=== PATIENT | male | born 1970 | race Caucasian/White ===

== ENCOUNTER 2021-09-22 03:45 | Inpatient (IN) | payer MEDICAID ==
[~2021-09-22] VITALS: Ht 175.3 cm; Wt 72.6 kg
[2021-09-22] MEDS ORDERED: ALBUTEROL SULF 2.5 MG/0.5ML(0.5%) NEB SOLN ONE (04:59)
[2021-09-22] MEDS ORDERED: IPRATROPIUM BROM 0.5 MG/2.5ML INH SOL NEB ONE ×2 (05:00→13:00)
[2021-09-22] MEDS ORDERED: methylPREDNISolone SOD SUCC 125 MG/2 ML VL IV ONE ×2 (05:00→13:00)
[2021-09-22 08:57] LABS: Basophils # (auto) 0 10 ^3/uL (0-0.2); Basophils % (auto) 0.5 % (0.0-2.0); Eosinophils # (auto) 0 10 ^3/uL (0-0.8); Eosinophils % (auto) 0.3 % (0.0-7.0); Hematocrit 38.7 % (41.0-53.0); Hemoglobin 13.4 g/dL (13.5-17.5); Lymphocytes # (auto) 0.3 10 ^3/uL (0.4-5.4); Lymphocytes % (auto) 4.8 % (10.0-50.0); Mean Corpuscular Hemoglobin 31.2 pg (28.0-32.0); Mean Corpuscular Hgb Conc. 34.6 g/dL (32.0-36.0); Mean Corpuscular Volume 90.1 fL (80.0-100.0); Monocytes # (auto) 0.4 10 ^3/uL (0-1.3); Monocytes % (auto) 5.5 % (0.0-12.0); Neutrophils # (auto) 6.1 10 ^3/uL (1.6-8.6); Neutrophils % (auto) 88.9 % (37.0-80.0); Red Blood Cells 4.29 10^6/uL (4.5-5.90); Red Cell Distribution Width 13.8 % (11.8-14.3); White Blood Cell 6.8 10^3/uL (4.4-10.8)
[2021-09-22 09:09] LABS: Albumin 3.5 g/dL (3.4-5.0); Calcium 9.3 mg/dL (8.5-10.1); Potassium 3.5 mmol/L (3.5-5.1)
[2021-09-22 09:12] LABS: BUN/Creatinine Ratio 15.7; Bilirubin, Total 0.4 mg/dL (0.2-1.0); Total Protein 6.6 g/dL (6.4-8.2)
[2021-09-22] MEDS ORDERED: ALBUTEROL SULF 2.5 MG/0.5ML(0.5%) NEB SOLN NEB ONE (13:00)
[2021-09-22] MEDS ORDERED: SODIUM CHLORIDE 0.9% 1,000 ML IV ONE (13:00)
[2021-09-22] MEDS ORDERED: ASPirin 81 mg TAB PO ONE (13:00)
[2021-09-22 13:34] LABS: Urine Bacteria NONE SEEN /hpf (None Seen); Urine Blood Negative /uL (Negative); Urine Specific Gravity 1.007 (1.001-1.035); Urine WBC 1 /hpf (0 - 3)
[2021-09-22] MEDS ORDERED: NICOTINE 14 MG/24HR TOPICAL PATCH TD ONE (17:00)
[2021-09-22] MEDS ORDERED: HYDROcodone-ACET 5/325MG TAB PO PRN (17:30)
[2021-09-22] MEDS ORDERED: IPRATROPIUM BROM 0.5 MG/2.5ML INH SOL NEB PRN (17:30)
[2021-09-22] MEDS ORDERED: ALBUTEROL SULF 2.5 MG/0.5ML(0.5%) NEB SOLN NEB PRN (17:30)
[2021-09-22] MEDS ORDERED: MORPHINE SULFATE INJ 2 MG/ml SYRG IV PRN ×2 (17:30)
[2021-09-22] MEDS ORDERED: ACETAMINOPHEN 325 MG TAB PO PRN (17:30)
[2021-09-22] MEDS ORDERED: NITROGLYCERIN 0.4 MG SL TAB SL PRN (17:30)
[2021-09-22 18:00] VITALS: BP 123/83
[2021-09-22 20:00] VITALS: BP 130/80
[2021-09-22] MEDS ORDERED: methylPREDNISolone SOD SUCC 40 MG/ML VL IV SCH (22:00)
[2021-09-23] MEDS ORDERED: ENOXAPARIN SOD 40 MG/0.4 ML SYRINGE SC SCH (10:00)
== END 2021-09-22 21:11 | disposition left against medical advice (07) | DRG 140 ==
LOC: EDBD 03:45 → ER 03:45 → TELE-WESTW 17:32
PROVIDERS: ADMIT Internal Medicine; ATTEND Internal Medicine
DX: J44.1 Chronic obstructive pulmonary disease with (acute) exacerbation (principal); J96.21 Acute and chronic respiratory failure with hypoxia; Z99.81 Dependence on supplemental oxygen; E05.90 Thyrotoxicosis, unspecified without thyrotoxic crisis or storm; I10 Essential (primary) hypertension; J98.11 Atelectasis; Z20.822 Contact with and (suspected) exposure to COVID-19; R73.9 Hyperglycemia, unspecified; R77.8 Other specified abnormalities of plasma proteins; Z53.29 Procedure and treatment not carried out because of patient's decision for other reasons
CPT/HCPCS: 36415; 71045; 80053; 81001; 83735; 83880; 84443; 84484; 85025; 85379; 93005; 94640; 96361; 96374; G0378

== ENCOUNTER 2021-09-23 17:20 | Inpatient (IN) | payer MEDICAID ==
[~2021-09-23] VITALS: Ht 175.3 cm; Wt 67.6 kg
[2021-09-23] MEDS ORDERED: ASPirin 81 mg TAB PO ONE (18:00)
[2021-09-23] MEDS ORDERED: SODIUM CHLORIDE 0.9% 1,000 ML IV ONE (18:00)
[2021-09-23 18:48] LABS: Basophils # (auto) 0 10 ^3/uL (0-0.2); Basophils % (auto) 0.2 % (0.0-2.0); Eosinophils # (auto) 0 10 ^3/uL (0-0.8); Hematocrit 39.5 % (41.0-53.0); Hemoglobin 13.6 g/dL (13.5-17.5); Lymphocytes # (auto) 0.9 10 ^3/uL (0.4-5.4); Lymphocytes % (auto) 6.4 % (10.0-50.0); Mean Corpuscular Hemoglobin 30.9 pg (28.0-32.0); Mean Corpuscular Hgb Conc. 34.5 g/dL (32.0-36.0); Mean Corpuscular Volume 89.7 fL (80.0-100.0); Monocytes # (auto) 1.3 10 ^3/uL (0-1.3); Monocytes % (auto) 9.8 % (0.0-12.0); Neutrophils # (auto) 11.2 10 ^3/uL (1.6-8.6); Neutrophils % (auto) 83.6 % (37.0-80.0); Red Cell Distribution Width 14.1 % (11.8-14.3); White Blood Cell 13.4 10^3/uL (4.4-10.8)
[2021-09-23 20:33] LABS: Albumin 3.4 g/dL (3.4-5.0); BUN/Creatinine Ratio 26.7; Calcium 8.6 mg/dL (8.5-10.1); Potassium 3.9 mmol/L (3.5-5.1)
[2021-09-23 20:36] LABS: Bilirubin, Total 0.2 mg/dL (0.2-1.0); Total Protein 6.4 g/dL (6.4-8.2)
[2021-09-23 20:38] LABS: Urine Bacteria NONE SEEN /hpf (None Seen); Urine Blood Negative /uL (Negative); Urine Mucus FEW (None Seen); Urine Specific Gravity 1.009 (1.001-1.035); Urine WBC <1 /hpf (0 - 3)
[2021-09-23] MEDS ORDERED: cefTRIAXone 1GM/50ML D5W 50 ML IV ONE (22:30)
[2021-09-23] MEDS ORDERED: NITROGLYCERIN 0.4 MG SL TAB SL PRN (23:00)
[2021-09-23] MEDS ORDERED: ONDANSETRON HCL 4 MG/2 ML VIAL IV PRN (23:00)
[2021-09-23] MEDS ORDERED: MORPHINE SULFATE INJ 2 MG/ml SYRG IV PRN (23:00)
[2021-09-23] MEDS: ALBUTEROL SULF 2.5 MG/0.5ML(0.5%) NEB SOLN NEB PRN (23:09)
[2021-09-24] MEDS: ALBUTEROL SULF 2.5 MG/0.5ML(0.5%) NEB SOLN NEB PRN ×6 (03:30→21:38)
[2021-09-24 06:32] LABS: Basophils # (auto) 0 10 ^3/uL (0-0.2); Basophils % (auto) 0.1 % (0.0-2.0); Eosinophils # (auto) 0 10 ^3/uL (0-0.8); Eosinophils % (auto) 0.1 % (0.0-7.0); Hematocrit 40.2 % (41.0-53.0); Hemoglobin 13.6 g/dL (13.5-17.5); Lymphocytes # (auto) 1.9 10 ^3/uL (0.4-5.4); Lymphocytes % (auto) 12.9 % (10.0-50.0); Mean Corpuscular Hemoglobin 30.5 pg (28.0-32.0); Mean Corpuscular Volume 89.7 fL (80.0-100.0); Monocytes # (auto) 1.2 10 ^3/uL (0-1.3); Monocytes % (auto) 8.2 % (0.0-12.0); Neutrophils # (auto) 11.3 10 ^3/uL (1.6-8.6); Neutrophils % (auto) 78.7 % (37.0-80.0); Red Blood Cells 4.48 10^6/uL (4.5-5.90); Red Cell Distribution Width 14.2 % (11.8-14.3); White Blood Cell 14.4 10^3/uL (4.4-10.8)
[2021-09-24 06:34] LABS: BUN/Creatinine Ratio 23.2; Calcium 8.7 mg/dL (8.5-10.1); Potassium 3.8 mmol/L (3.5-5.1)
[2021-09-24] MEDS: BUDESONIDE (INHALATION) 0.5 MG/2 ML NEB NEB SCH ×2 (09:08→17:43)
[2021-09-24] MEDS: IPRATROPIUM BROM 0.5 MG/2.5ML INH SOL NEB PRN ×4 (09:08→21:38)
[2021-09-24] MEDS: predniSONE 20 MG TAB PO SCH ×2 (10:20→22:52)
[2021-09-24] MEDS: DOXYCYCLINE 100 MG TAB/CAP PO SCH ×2 (10:20→22:52)
[2021-09-24] MEDS: ENOXAPARIN SOD 40 MG/0.4 ML SYRINGE SC SCH (10:21)
[2021-09-24] MEDS ORDERED: METOPROLOL SUCCINATE XL 50 MG TAB PO ONE (10:30)
[2021-09-24] MEDS ORDERED: ASPirin 81 mg TAB PO ONE (10:30)
[2021-09-24] MEDS: NICOTINE 21MG/24 HR TOPICAL PATCH TD SCH (10:42)
[2021-09-24] MEDS: MORPHINE SULFATE INJ 2 MG/ml SYRG IV PRN ×2 (10:43→22:52)
[2021-09-24 14:20] LABS: Alcohol, Urine < 3.0 mg/dL (0-10); Amphetamine Screen, Urine NEGATIVE (NEGATIVE); Barbiturate Scree,Urine NEGATIVE (NEGATIVE); Benzodiazephine Screen, Urine NEGATIVE (NEGATIVE); Cannabinoid Screen, Urine POSITIVE (NEGATIVE); Cocaine Screen, Urine NEGATIVE (NEGATIVE); Opiate Scree,Urine NEGATIVE (NEGATIVE); Phencyclidine Screen, Urine NEGATIVE (NEGATIVE)
[2021-09-24 19:13] VITALS: BP 128/86
[2021-09-25] MEDS ORDERED: FLU220IH INH (00:12)
[2021-09-25] MEDS ORDERED: METH4TAB7 PO (00:12)
[2021-09-25] MEDS ORDERED: TIOT1AER IN (00:12)
[2021-09-25] MEDS ORDERED: MELO1TAB56 PO (00:12)
[2021-09-25] MEDS ORDERED: AMLO-489 PO (00:12)
[2021-09-25] MEDS ORDERED: LISI-716 PO (00:12)
[2021-09-25] MEDS ORDERED: AZIT250T9 PO (00:12)
[2021-09-25] MEDS: IPRATROPIUM BROM 0.5 MG/2.5ML INH SOL NEB PRN ×4 (03:33→19:03)
[2021-09-25] MEDS: ALBUTEROL SULF 2.5 MG/0.5ML(0.5%) NEB SOLN NEB PRN ×4 (03:33→19:03)
[2021-09-25 04:59] VITALS: BP 144/66
[2021-09-25] MEDS: BUDESONIDE (INHALATION) 0.5 MG/2 ML NEB NEB SCH ×2 (10:03→19:04)
[2021-09-25] MEDS: predniSONE 20 MG TAB PO SCH (11:15)
[2021-09-25] MEDS: ASPirin 81 mg TAB PO SCH (11:15)
[2021-09-25] MEDS: ENOXAPARIN SOD 40 MG/0.4 ML SYRINGE SC SCH (11:16)
[2021-09-25] MEDS: DOXYCYCLINE 100 MG TAB/CAP PO SCH ×2 (11:16→20:57)
[2021-09-25] MEDS: NICOTINE 21MG/24 HR TOPICAL PATCH TD SCH (11:17)
[2021-09-25] MEDS: MORPHINE SULFATE INJ 2 MG/ml SYRG IV PRN ×2 (12:42→18:16)
[2021-09-25] MEDS: METOPROLOL SUCCINATE XL 50 MG TAB PO SCH (12:43)
[2021-09-25] MEDS: methylPREDNISolone SOD SUCC 40 MG/ML VL IV SCH ×2 (15:08→20:57)
[2021-09-25 17:00] VITALS: BP 127/90
[2021-09-25 20:00] VITALS: BP 120/79
[2021-09-25 22:00] VITALS: BP 120/79
[2021-09-26] MEDS: ALBUTEROL SULF 2.5 MG/0.5ML(0.5%) NEB SOLN NEB PRN ×2 (03:16→09:50)
[2021-09-26] MEDS: IPRATROPIUM BROM 0.5 MG/2.5ML INH SOL NEB PRN ×2 (03:16→09:50)
[2021-09-26] MEDS: MORPHINE SULFATE INJ 2 MG/ml SYRG IV PRN (03:34)
[2021-09-26 05:00] VITALS: BP 124/88
[2021-09-26] MEDS: methylPREDNISolone SOD SUCC 40 MG/ML VL IV SCH ×2 (06:29→14:00)
[2021-09-26 09:00] VITALS: BP 99/71
[2021-09-26] MEDS: DOXYCYCLINE 100 MG TAB/CAP PO SCH (09:19)
[2021-09-26] MEDS: ASPirin 81 mg TAB PO SCH (09:19)
[2021-09-26] MEDS: METOPROLOL SUCCINATE XL 50 MG TAB PO SCH (09:23)
[2021-09-26] MEDS: NICOTINE 21MG/24 HR TOPICAL PATCH TD SCH (09:24)
[2021-09-26] MEDS: ENOXAPARIN SOD 40 MG/0.4 ML SYRINGE SC SCH (09:25)
[2021-09-26] MEDS: BUDESONIDE (INHALATION) 0.5 MG/2 ML NEB NEB SCH (09:50)
[2021-09-26] MEDS ORDERED: LISINOPRIL 5 MG TAB PO SCH (10:00)
[2021-09-26] MEDS ORDERED: ALB5IS NEB (12:04)
[2021-09-26] MEDS ORDERED: DOXY-332 PO (12:05)
[2021-09-26] MEDS ORDERED: PRED20TA2 PO (12:05)
[2021-09-26] MEDS ORDERED: METO-6 PO (12:07)
[2021-09-26 13:00] VITALS: BP 133/88
[2021-09-26 13:08] VITALS: BP 120/92
== END 2021-09-26 14:33 | disposition home or self-care (01) | DRG 201 ==
LOC: ER 17:20 → EDBD 17:20 → TELE 22:47 → TELE-WESTW 09-24 21:37
PROVIDERS: ADMIT Hospitalist; ATTEND Hospitalist
DX: I47.1 Supraventricular tachycardia (principal); J96.21 Acute and chronic respiratory failure with hypoxia; Z99.81 Dependence on supplemental oxygen; I48.0 Paroxysmal atrial fibrillation; J44.1 Chronic obstructive pulmonary disease with (acute) exacerbation; G89.29 Other chronic pain; I10 Essential (primary) hypertension; J98.11 Atelectasis; Z20.822 Contact with and (suspected) exposure to COVID-19; Z87.891 Personal history of nicotine dependence
CPT/HCPCS: 36415; 71045; 80048; 80053; 80307; 81001; 84439; 84443; 84484; 85025; 93005; 93306; 94640; 96361; 96365; G0378; J0696; J2405

== ENCOUNTER 2023-01-04 15:00 | Inpatient (IN) | payer MEDICAID ==
[~2023-01-04] VITALS: Ht 175.3 cm; Wt 75.0 kg
[~2023-01-04 15:00] MED LIST: ALB5IS NEB; AMLO1TAB22 PO; DOXY-448 PO; FLU220IH INH; LISI10TA34 PO; MELO-335 PO; METO-6 PO; PRED20TA2 PO; TIOT1AER IN
[2023-01-04 15:18] VITALS: BP 120/84; RESP 24; O2SAT 98
[2023-01-04] MEDS ORDERED: VANCOMYCIN 1GM/250ML 250 ML IV ONE (15:30)
[2023-01-04 15:51] VITALS: PULSE 80
[2023-01-04 16:11] LABS: Basophils # (auto) 0 10 ^3/uL (0-0.2); Basophils % (auto) 0.8 % (0.0-2.0); Eosinophils # (auto) 0.3 10 ^3/uL (0-0.8); Eosinophils % (auto) 4.7 % (0.0-7.0); Hematocrit 41.1 % (41.0-53.0); Hemoglobin 13.9 g/dL (13.5-17.5); Lymphocytes # (auto) 1.6 10 ^3/uL (0.4-5.4); Lymphocytes % (auto) 26.8 % (10.0-50.0); Mean Corpuscular Hemoglobin 30.8 pg (28.0-32.0); Mean Corpuscular Hgb Conc. 33.7 g/dL (32.0-36.0); Mean Corpuscular Volume 91.4 fL (80.0-100.0); Monocytes # (auto) 0.6 10 ^3/uL (0-1.3); Monocytes % (auto) 9.7 % (0.0-12.0); Neutrophils # (auto) 3.6 10 ^3/uL (1.6-8.6); Nucleated Red Blood Cells % 0.1 %; Red Cell Distribution Width 13.8 % (11.8-14.3); White Blood Cell 6.1 10^3/uL (4.4-10.8)
[2023-01-04 16:27] LABS: Alanine Aminotransferase 25 U/L (7-40); Alkaline Phosphatase 106 U/L (46-116); Anion Gap 5 (5-15); Aspartate Aminotransferase 9 U/L (13-40); BUN/Creatinine Ratio 11.1 (10.0-20.0); Bilirubin, Total 0.4 mg/dL (0.2-1.0); Blood Urea Nitrogen 12 mg/dL (9-23); Calcium 9.4 mg/dL (8.7-10.4); Carbon Dioxide 31 mmol/L (20-30); Chloride 106 mmol/L (98-107); Glucose 211 mg/dL (74-106); Sodium 142 mmol/L (136-145)
[2023-01-04 16:33] LABS: INR 1.06 (0.9-1.15); Prothrombin Time 11.1 sec (9.3-11.8)
[2023-01-04] MEDS ORDERED: ATOR20TA50 PO (19:02)
[2023-01-04] MEDS ORDERED: NITROGLYCERIN 0.4 MG SL TAB SL PRN (19:15)
[2023-01-04] MEDS ORDERED: ONDANSETRON HCL 4 MG/2 ML VIAL IV PRN (19:15)
[2023-01-04] MEDS ORDERED: DEXTROSE (50%) 50ML SYRG IV PRN (19:15)
[2023-01-04] MEDS ORDERED: MORPHINE SULFATE INJ 2 MG/ml SYRG IV PRN (19:15)
[2023-01-04] MEDS ORDERED: HYDROcodone-ACET 5/325MG TAB PO PRN (19:15)
[2023-01-04] MEDS ORDERED: DOCUSATE SOD 100 MG CAP PO PRN (19:15)
[2023-01-04] MEDS ORDERED: ACETAMINOPHEN 325 MG TAB PO PRN (19:15)
[2023-01-04] MEDS ORDERED: SODIUM CHLORIDE 0.9% 1,000 ML IV ONE (19:30)
[2023-01-04] MEDS ORDERED: CLINDAMYCIN 600MG IV 50 ML IV SCH (19:40)
[2023-01-04] MEDS ORDERED: ACCU-CHEK COMFORT CURVE STRIP VI SCH (22:00)
[2023-01-04] MEDS ORDERED: amLODIPine BESYLATE 5 MG TAB PO SCH (22:00)
[2023-01-04] MEDS ORDERED: ASCORBIC ACID 500 MG TAB PO SCH (22:00)
[2023-01-04] MEDS ORDERED: SODIUM CHLOR 0.9% PF (SALINE LOCK) 10ML VIAL/SYR IV SCH (22:00)
[2023-01-04] MEDS ORDERED: InsuLIN REG 1unit/0.01ml Soln (100units/ml) SC SCH (22:00)
[2023-01-04] MEDS ORDERED: LISINOPRIL 10 MG TAB PO SCH (22:00)
[2023-01-05] MEDS ORDERED: InsuLIN REG 1unit/0.01ml Soln (100units/ml) SC SCH (07:00)
[2023-01-05] MEDS ORDERED: MELOXICAM 15 MG TABLET PO SCH (10:00)
[2023-01-05] MEDS ORDERED: ATORVASTATIN 20 MG TAB PO SCH (10:00)
[2023-01-05] MEDS ORDERED: MULTIPLE VITAMIN TAB PO SCH (10:00)
[2023-01-05] MEDS ORDERED: ZINC SULFATE 220mg CAP or TAB PO SCH (10:00)
== END 2023-01-04 21:03 | disposition left against medical advice (07) | DRG 383 ==
LOC: EDBD 15:00 → ER 15:00 → TELE 19:19
PROVIDERS: ADMIT Nurse Practitioner Family; ATTEND Nurse Practitioner Family
DX: L03.115 Cellulitis of right lower limb (principal); E11.51 Type 2 diabetes mellitus with diabetic peripheral angiopathy without gangrene; F17.210 Nicotine dependence, cigarettes, uncomplicated; I10 Essential (primary) hypertension; J44.9 Chronic obstructive pulmonary disease, unspecified; L03.116 Cellulitis of left lower limb; Z53.21 Procedure and treatment not carried out due to patient leaving prior to being seen by health care provider; L60.0 Ingrowing nail
CPT/HCPCS: 36415; 80053; 83880; 84484; 85025; 85610; 93005; 93970; G0378

== ENCOUNTER → 2023-01-24 | Outpatient (CLI) | payer MEDICAID ==
[~2023-01-24] MED LIST changes: +ATOR20TA50 PO; -DOXY-448 PO; -METO-6 PO; -PRED20TA2 PO
== END | disposition home or self-care (01) ==
LOC: XYW 09:41
PROVIDERS: ATTEND Podiatrist
DX: L60.0 Ingrowing nail (principal)
CPT/HCPCS: 93925

== ENCOUNTER 2024-01-17 23:41 | Emergency (ER) | payer MEDICAID ==
[~2024-01-17] VITALS: Ht 175.3 cm; Wt 90.9 kg
[~2024-01-17 23:41] MED LIST changes: -MELO-335 PO; +MELO15TA29 PO
[2024-01-17 23:45] VITALS: PULSE 117; RESP 28; TEMP 97.6; O2SAT 93
[2024-01-18 00:37] LABS: Basophils # (auto) 0.1 10 ^3/uL (0-0.2); Basophils % (auto) 0.7 % (0.0-2.0); Eosinophils # (auto) 0 10 ^3/uL (0-0.8); Eosinophils % (auto) 0.5 % (0.0-7.0); Hemoglobin 15.3 g/dL (13.5-17.5); Lymphocytes # (auto) 1.9 10 ^3/uL (0.4-5.4); Lymphocytes % (auto) 26.2 % (10.0-50.0); Mean Corpuscular Hemoglobin 32.1 pg (28.0-32.0); Mean Corpuscular Volume 94.2 fL (80.0-100.0); Monocytes # (auto) 0.8 10 ^3/uL (0-1.3); Monocytes % (auto) 10.8 % (0.0-12.0); Neutrophils # (auto) 4.4 10 ^3/uL (1.6-8.6); Neutrophils % (auto) 61.8 % (37.0-80.0); Platelet Count (auto) 276 10^3/uL (140-450); Red Blood Cells 4.77 10^6/uL (4.5-5.90); Red Cell Distribution Width 15.4 % (11.8-14.3); White Blood Cell 7.1 10^3/uL (4.4-10.8)
[2024-01-18 01:10] LABS: Alanine Aminotransferase 17 U/L (7-40); Albumin 4.3 g/dL (3.2-4.8); Alkaline Phosphatase 64 U/L (46-116); Anion Gap 10 (5-15); Aspartate Aminotransferase 14 U/L (13-40); BUN/Creatinine Ratio 6.9 (10.0-20.0); Blood Urea Nitrogen 9 mg/dL (9-23); Calcium 8.7 mg/dL (8.7-10.4); Carbon Dioxide 21 mmol/L (20-31); Chloride 110 mmol/L (98-107); Glucose 107 mg/dL (74-106); Lipase 29 U/L (12-53); Potassium 3.8 mmol/L (3.5-5.1); Sodium 141 mmol/L (136-145)
[2024-01-18 01:11] LABS: Bilirubin, Total 0.6 mg/dL (0.2-1.0); Total Protein 6.6 g/dL (5.7-8.2)
[2024-01-18] MEDS: IPRATROPIUM BROM 0.5 MG/2.5ML INH SOL NEB ONE (01:31)
[2024-01-18] MEDS: ALBUTEROL SULF 2.5 MG/0.5ML(0.5%) NEB SOLN NEB ONE (01:32)
[2024-01-18] MEDS: ALBUTEROL SULF 2.5 MG/0.5ML(0.5%) NEB SOLN ONE (01:32)
[2024-01-18] MEDS: IPRATROPIUM BROM 0.5 MG/2.5ML INH SOL ONE (01:32)
[2024-01-18 01:35] LABS: Lactic Acid w/Reflex 2.1 mmol/L (0.4-2.0)
[2024-01-18] MEDS: methylPREDNISolone SOD SUCC 125 MG/2 ML VL IV ONE (01:40)
[2024-01-18 02:00] LABS: Urine Bacteria None Seen /hpf (None Seen); Urine WBC None Seen /hpf (0 - 3)
[2024-01-18 02:23] LABS: Urine Blood Negative /uL (Negative); Urine Clarity Clear (Clear); Urine Protein, UAD Negative (Negative); Urine Specific Gravity 1.006 (1.001-1.035); Urine Urobilinogen Normal (Negative); Urine pH 5.5 (5.0-9.0)
[2024-01-18 02:29] LABS: Urine Color STRAW (Yellow)
[2024-01-18 08:00] VITALS: PULSE 104; RESP 15; O2SAT 93
[2024-01-18 10:00] VITALS: BP 137/89; PULSE 105; RESP 18; O2SAT 92
[2024-01-18] MEDS ORDERED: NITROGLYCERIN 0.4 MG SL TAB SL PRN ×2 (10:45→11:00)
[2024-01-18] MEDS ORDERED: ALBUTEROL SULF 2.5 MG/0.5ML(0.5%) NEB SOLN NEB PRN ×2 (10:45→11:00)
[2024-01-18] MEDS ORDERED: SODIUM CHLORIDE 0.9% 1,000 ML IV SCH ×2 (10:45→11:00)
[2024-01-18] MEDS ORDERED: MORPHINE SULFATE INJ 2 MG/ml SYRG IV PRN ×2 (10:45→11:00)
[2024-01-18] MEDS ORDERED: ACETAMINOPHEN 325 MG TAB PO PRN ×2 (10:45→11:00)
[2024-01-18 11:52] LABS: LDL Cholesterol 92 mg/dL (< 100); Triglycerides 161 mg/dL (< 150)
[2024-01-18 11:54] LABS: Cholesterol 170 mg/dL (< 200); HDL Cholesterol 63 mg/dL (40-59)
[2024-01-18] MEDS ORDERED: ALBUTEROL SULF 2.5 MG/0.5ML(0.5%) NEB SOLN NEB SCH ×2 (14:00)
[2024-01-18] MEDS ORDERED: IPRATROPIUM BROM 0.5 MG/2.5ML INH SOL NEB SCH ×2 (14:00)
[2024-01-19] MEDS ORDERED: ENOXAPARIN SOD 40 MG/0.4 ML SYRINGE SC SCH ×2 (10:00)
== END 2024-01-18 11:15 | disposition left against medical advice (07) ==
LOC: EDBD 23:41 → ER 23:41 → TELE 01-18 10:37 → UNDOADMIN 01-18 10:37 → TELE 01-18 11:15 → UNDODISIN 01-18 11:17
DX: J44.1 Chronic obstructive pulmonary disease with (acute) exacerbation (principal); R07.89 Other chest pain; I10 Essential (primary) hypertension; E11.9 Type 2 diabetes mellitus without complications; F17.210 Nicotine dependence, cigarettes, uncomplicated
CPT/HCPCS: 36415; 71045; 80053; 80061; 81001; 83605; 83690; 83735; 83880; 84443; 84484; 85025; 85379; 93005; 94640; 96374; 99291; J2919; G0378

== ENCOUNTER 2025-04-01 09:55 | Outpatient (CLI) | payer MEDICAID ==
[~2025-04-01] VITALS: Ht 165.1 cm; Wt 72.6 kg
[2025-04-01] MEDS ORDERED: ADENOSINE 90 MG/30 ML INJ IV ONE (10:32)
[2025-04-01] MEDS ORDERED: ADENOSINE 61 MG in GIVE UN-DILUTED 0 ML IV ONE (12:00)
== END 2025-04-01 17:00 | disposition home or self-care (01) ==
LOC: Rad HDHVI 09:55
PROVIDERS: ATTEND Internal Medicine Cardiovascular Disease
DX: I47.10 Supraventricular tachycardia, unspecified (principal); R00.1 Bradycardia, unspecified; J96.11 Chronic respiratory failure with hypoxia; R00.2 Palpitations; R42 Dizziness and giddiness; E78.5 Hyperlipidemia, unspecified; E11.65 Type 2 diabetes mellitus with hyperglycemia; I73.9 Peripheral vascular disease, unspecified; J43.9 Emphysema, unspecified; I10 Essential (primary) hypertension
CPT/HCPCS: 78452; 93017; A9500; J0153